=== PATIENT | male | born 1980 | race Caucasian/White ===

== ENCOUNTER 2021-05-15 12:37 | Outpatient (REF) | payer OTHER, SELFPAY ==
--- NOTE | ~2021-05-15 | XR_ITS ---
EXAMINATION: XR CHEST CLINICAL INFORMATION: Cough and left lung base pain COMPARISON: None TECHNIQUE: 2 views of the chest were obtained. FINDINGS: No significant abnormality is noted involving the heart, lungs, mediastinum, bony thorax or soft tissues. XR/XR chest 2V IMPRESSION: Unremarkable examination.
== END 2021-05-15 12:38 | disposition home or self-care (01) ==
LOC: HO.XRAY 12:37
PROVIDERS: PCP Nurse Practitioner; Visit Provider Nurse Practitioner
DX: R05 Cough (principal)
CPT/HCPCS: 71046

== ENCOUNTER 2021-11-08 14:15 | Outpatient (REF) | payer OTHER, SELFPAY ==
--- NOTE | ~2021-11-08 | US_ITS ---
EXAMINATION: US LEFT INGUINAL REGION CLINICAL INFORMATION: Pain in inguinal region. COMPARISON: None TECHNIQUE: Targeted left inguinal ultrasound with contralateral inguinal region scan for comparison. FINDINGS: There appears to be an approximately 1 cm diameter defect within the pelvic wall seen with Valsalva which has what appears to be some peristalsing bowel which extends through the fascia with Valsalva. There is also noted be a normal-appearing lymph node in the inguinal region measuring 1.5 cm x 1.2 cm x 0.5 cm in size. US/US pelvic limited IMPRESSION: Reducible small left inguinal hernia with protrusion of loop of bowel with Valsalva. The wall defect measures approximately 1 cm in diameter.
== END 2021-11-08 14:16 | disposition home or self-care (01) ==
LOC: HO.HMGCX 14:15
PROVIDERS: PCP Nurse Practitioner; Visit Provider Internal Medicine
DX: R10.32 Left lower quadrant pain (principal); K40.90 Unilateral inguinal hernia, without obstruction or gangrene, not specified as recurrent
CPT/HCPCS: 76857

== ENCOUNTER → 2021-11-21 09:57 | Outpatient (BNVA) | payer OTHER, SELFPAY | PROVIDERS: PCP Nurse Practitioner; Referring Provider Nurse Practitioner; Visit Provider Surgery ==

== ENCOUNTER 2021-12-13 10:31 | Day surgery (SDC) | payer OTHER, SELFPAY ==
[2021-12-07 15:53] VITALS: BMI 32.1
--- NOTE | 2021-12-12 10:26 | HO.ANESPROP2 ---
Documented by User: Lydia Olson NP 12/12/21 10:27 HPI - Anesthesia Eval Consult details Narrative: 41yo M for Left Hernia Repair Inguinal with Mesh PMFSH Active Problems Active Problems: All Active Problems (Updated 12/07/21 @ 15:57 by Paulina Arcos, RN) Left inguinal hernia (Acute) Past Medical History Medical History Back pain Environmental allergies GERD (gastroesophageal reflux disease) Wears contact lenses Family History Family History Maternal Grandfather Colon cancer Surgical History Surgical History H/O tooth extraction Social History Social History Are you a primary customer care assistant to a significant other at home: No Do you presently have visiting nurse or other home services: No Alcohol intake: never Patient Tobacco Use Status: Never used Tobacco Use of substances other than those prescribed or required for medical reasons: Yes Substance Use Frequency: Daily Have you been hit, kicked, punched, or otherwise hurt by someone within the past year? If so, by whom?: No Are you DNR?: No Advance Directives: No Advance Directives Information Provided: Yes Advance Directives on File: No Recently lost weight without trying: No Poor oral hygiene: No Meds Allergies Allergy/AdvReac Type Severity Reaction Status Date / Time No Known Allergies Allergy Verified 12/13/21 10:51 Home Medications Medication Instructions Recorded Confirmed Last Taken Type cetirizine 10 mg tablet 10 mg PO DAILY 11/21/21 12/07/21 12/13/21 08:30 History naproxen 500 mg tablet 500 mg PO BID 11/21/21 12/07/21 Unknown History pantoprazole 20 mg tablet,delayed 20 mg PO BID 11/21/21 12/07/21 12/13/21 08:30 History release Exam Exam Date and Time: December 12, 2021 1026 Height,Weight and Vital Signs: Height 6 ft Weight 107.501 kg Assessment and Plan Assessment Anesthesia Assessment: Chart Reviewed Documented by User: Erica William MD 12/13/21 13:08 [facility] Past Medical History Medical History Back pain Environmental allergies GERD (gastroesophageal reflux disease) Wears contact lenses Family History Family History Maternal Grandfather Colon cancer Family history of problems with anesthesia: No Surgical History Surgical History H/O tooth extraction History of Problems with Anesthesia: No Social History Social History Are you a primary customer care assistant to a significant other at home: No Do you presently have visiting nurse or other home services: No Alcohol intake: never Patient Tobacco Use Status: Never used Tobacco Use of substances other than those prescribed or required for medical reasons: Yes Substance Use Frequency: Daily Have you been hit, kicked, punched, or otherwise hurt by someone within the past year? If so, by whom?: No Are you DNR?: No Advance Directives: No Advance Directives Information Provided: Yes Advance Directives on File: No Recently lost weight without trying: No Poor oral hygiene: No Meds Allergies Allergy/AdvReac Type Severity Reaction Status Date / Time No Known Allergies Allergy Verified 12/13/21 10:51 Home Medications Medication Instructions Recorded Confirmed Last Taken Type cetirizine 10 mg tablet 10 mg PO DAILY 11/21/21 12/07/21 12/13/21 08:30 History naproxen 500 mg tablet 500 mg PO BID 11/21/21 12/07/21 Unknown History pantoprazole 20 mg tablet,delayed 20 mg PO BID 11/21/21 12/07/21 12/13/21 08:30 History release Exam Airway Mallampati Class: II (Right top tooth) TM Dist: >3cm Neck ROM: Full Heart: rrr Lungs: cta Assessment and Plan Assessment Anesthesia Assessment: Anesthesia Plan Discussed and Chart Reviewed Final Anesthetic Review Family History of Problems with Anesthesia: No History of Problems with Anesthesia: No NPO: Yes ASA Class: II Final Preanesthetic Review: No Changes in Pt Med Stat, Meds/Allgs Chart Reviewed and Consent Obtained/Reviewed Patient Risk: Intermediate Procedure Risk: Intermediate Anesthetic Plan Anesthetic Plan: GA Disposition: Standard PACU
[2021-12-13 11:01] VITALS: BP 132/91; PULSE 57; RESP 16; TEMP 36.5; O2SAT 97
[2021-12-13] MEDS: Lactated Ringers 1,000 ML 100 ML IVCONT (11:12)
--- NOTE | 2021-12-13 12:57 | MHC.SHP ---
Pre-Procedural Eval Section A Date of Service: 12/13/21 The patient is an INPATIENT: No Changes since office visit: Yes Patient answered all questions; No Cold of Flu in the past 2 weeks, No New Medical Problems and No Changes in Medication The History & Physical has been completed within 30 days and I have reviewed it.: Yes Section B Chief Complaint: Left Inguinal Hernia Allergies: Allergies Allergy/AdvReac Type Severity Reaction Status Date / Time No Known Allergies Allergy Verified 12/13/21 10:51 Plan Diagnosis/Plan: Unchanged I have reviewed the history and physical and performed a pertinent physical examination on my patient. No changes have occurred unless specified.
[2021-12-13 14:35] VITALS: BP 127/80; PULSE 74; RESP 16; TEMP 36.4; O2SAT 93
--- NOTE | 2021-12-13 14:35 | P.OP_ITS ---
Operative Note Operative Note Date of Service: 12/13/21 Narrative: Preoperative diagnosis: left inguinal hernia Postoperative diagnosis: Same Procedure: Repair of left inguinal hernia with mesh Surgeon: Sam Rider MD Instructor Business Education: Edna Putnam PA-C Anesthesia: General LMA Indications for procedure: 41 year old male with a palpable lump in the left groin suggestive of a left inguinal hernia Operative findings:. Indirect left inguinal hernia Specimen: hernia sac Estimated blood loss: 2 mls Complications: none Procedure details: Patient was brought to the OR and placed in a supine position. After administering general anesthesia the patient's abdomen was prepped with ChloraPrep and draped in a sterile fashion. A surgical time-out was called the consent confirmed. Patient received preoperative antibiotics and Venodyne boots were in place. Local anesthesia consisting of 0.5% Sensorcaine with epinephrine was infiltrated over the left inguinal ligament. Incision was then made in oblique fashion over the inguinal ligament. This carried out through subcutaneous tissue past Bryan's fashion up to the external oblique aponeurosis. Additional local was infiltrated below the external oblique aponeurosis. This was then incised with a scalpel wide with the Metzenbaum scissors. Spermatic cord was then dissected free from the surrounding inguinal canal and retracted using a Marengo drain. The floor of the inguinal canal was examined and no direct hernia was identified. Fibers of the cremasteric muscle were then and an indirect sac was identified. This was dissected down to the internal ring. The sac was then opened and the contents reduced. The sac was ligated with a 0 polysorb suture. The sac was then divided above this. This was sent to the specimen. The sac was then reduced into the abdominal cavity. Attention was then directed to the direct space which was divided between Allis clamps. The preperitoneal space was then created. This was opened further using an open Ray-Larry sponge. A large PHS mesh was then obtained. The circular underlay was placed into the preperitoneal space and deployed. The overlay was then secured to the pubic tubercle, conjoined tendon, and shelving edge of the inguinal l igament using interrupted 0 Polysorb sutures. A slit was made in the mesh and the mesh were wrapped around the spermatic cord at the internal ring. This was then secured to the shelving edge of the inguinal ligament using the 0 Polysorb suture. This was felt to be loose enough to allow the tip of an index finger to pass. Wounds were checked for hemostasis. Wounds were irrigated with saline so lution and suctioned dry. External oblique aponeurosis was then closed using a running 2 0 Polysorb suture. Bryan's fascia and dermis reapproximated using interrupted 3-0 Polysorb sutures. Skin was then closed using a running subcuticular 4-0 Polysorb suture. Steri-Strips 2 x 2 gauze and Tegaderm were then applied. The patient tolerated the procedure well. Sponge, instrument, needle counts reported as correct. Patient was transferred to PACU in stable condition.
[2021-12-13 14:40] VITALS: BP 129/82; PULSE 62; RESP 14; O2SAT 94
[2021-12-13 14:45] VITALS: BP 125/77; PULSE 61; RESP 16; O2SAT 94
[2021-12-13 14:50] VITALS: BP 121/74; PULSE 61; RESP 16; O2SAT 95
[2021-12-13 14:55] VITALS: BP 120/73; PULSE 61; RESP 16; TEMP 37; O2SAT 94
== END 2021-12-13 15:41 | disposition home or self-care (01) ==
PROVIDERS: PCP Nurse Practitioner; Visit Provider Surgery
PROC: (CPT 49505; principal; 2021-12-13 12:20)
DX: K40.90 Unilateral inguinal hernia, without obstruction or gangrene, not specified as recurrent (principal); K21.9 Gastro-esophageal reflux disease without esophagitis; Z79.899 Other long term (current) drug therapy
CPT/HCPCS: 49505; 88302; C1781; J0690; J1100; J1885; J2250; J2405; J3010

== ENCOUNTER → 2021-12-21 10:50 | Outpatient (BNVA) | payer OTHER, SELFPAY | PROVIDERS: PCP Nurse Practitioner; Referring Provider Nurse Practitioner; Visit Provider Surgery ==

== ENCOUNTER → 2022-01-09 09:59 | Outpatient (BNVA) | payer OTHER, SELFPAY | PROVIDERS: PCP Nurse Practitioner; Referring Provider Nurse Practitioner; Visit Provider Surgery | DX: Z13.89 Encounter for screening for other disorder (principal) ==

== ENCOUNTER 2022-06-14 16:48 | Emergency (ER) | payer OTHER, SELFPAY ==
--- NOTE | ~2022-06-14 | XR_ITS ---
EXAMINATION: XR KNEE, LEFT CLINICAL INFORMATION: Pain COMPARISON: None TECHNIQUE: Four views of the left knee. FINDINGS: Bones and soft tissues are normal. Small joint effusion. Alignment is anatomic. Joint spaces are well maintained. Chondrocalcinosis in the lateral joint. XR/XR knee LT 3V IMPRESSION: Small joint effusion. Chondrocalcinosis.
[2022-06-14 17:05] VITALS: BP 130/78; PULSE 70; RESP 17; TEMP 36.6; O2SAT 98; BMI 30.4
--- NOTE | 2022-06-14 18:37 | ED.GENADULT ---
HPI - General Adult General Chief complaint: Extremity Injury, Lower Stated complaint: left knee pain Time Seen by Provider: 06/14/22 18:15 Source: patient Mode of arrival: ambulatory Limitations: no limitations History of Present Illness HPI narrative: 41 yold male presents to the ED for left knee pain since yesterday after twisting knee. Patient states he was standing and Renetta his left lower extremity to begin climbing a rock yesterday and heard a popping crunch in his left knee. Patient states since then having pain. Patient denies falling to the ground of blunt trauma to knee. Patient states no fever, chills, redness, or swelling. Related Data Home Medications Medication Instructions Recorded Confirmed cetirizine 10 mg tablet 10 mg PO DAILY 11/21/21 12/07/21 naproxen 500 mg tablet 500 mg PO BID 11/21/21 12/07/21 pantoprazole 20 mg tablet,delayed 20 mg PO BID 11/21/21 12/07/21 release Previous Rx's Medication Instructions Recorded naproxen 500 mg tablet 500 mg PO BID PRN pain 10 days #20 06/14/22 tabs prednisone 20 mg tablet 60 mg PO DAILY 5 days #15 tabs 06/14/22 Allergies Allergy/AdvReac Type Severity Reaction Status Date / Time No Known Allergies Allergy Verified 01/09/22 10:06 Review of Systems Review of Systems: Left knee pain PMFSH Past Medical History Medical History (Updated 06/15/22 @ 00:03 by Mike Davila) Back pain Environmental allergies GERD (gastroesophageal reflux disease) Wears contact lenses Surgical History H/O tooth extraction S/P left inguinal hernia repair (12/13/21) Family History Family History Maternal Grandfather Colon cancer Social History Social History Are you a primary animal care service worker to a significant other at home: No Do you presently have visiting nurse or other home services: No Alcohol intake: never Patient Tobacco Use Status: Never used Tobacco Advance Directives: No Advance Directives Information Provided: No Physical Exam ED Vital Signs: Vital Signs - 24 hr 06/14/22 17:05 Temperature 98 F Pulse Rate 70 Respiratory Rate 17 Blood Pressure 130/78 Pulse Oximetry 98 Oxygen Delivery Method Room Air BMI result Body Mass Index 30.4 Const General: cooperative, healthy appearing, comfortable, no acute distress, well developed, alert, awake and Physically active Orientation/consciousness: oriented to time and patient oriented x3 [facility] Head: Yes normal to inspection, Yes No palpable skull fracture present, Yes normocephalic, Yes atraumatic and No abrasion Eyes General: appearance normal, both eyes and all related structures Neck Neck: Yes normal visual inspection, Yes full ROM, Yes no lymphadenopathy, Yes no meningeal signs, Yes trachea midline, Yes supple, No anterior neck swelling and No tender Chest Chest palpation & inspection: normal inspection of the chest and normal palpation of entire chest wall Resp Effort & Inspection: normal respiratory effort and able to speak in complete sentences Auscultation: clear to auscultation bilaterally Cardio Jugular venous distension: no JVD Heart sounds: S1 normal heart sound present and S2 normal heart sound present GI Inspection: Yes normal to inspection and No abdominal wall ecchymosis Palpation (GI): Soft to palpation, not firm, nontender, no guarding and not rigid General: No CVA tenderness and Yes no CVA tenderness Back/Spine/Pelvis Back: no CVA tenderness, No CVA tenderness and No back tenderness Skin General skin exam: no rashes or lesions noted and elasticity normal Neuro General: oriented to time, patient oriented x3, gait normal, tone normal and no meningeal signs Cranial nerves: Yes CN's II-XII intact bilaterally Extrem General: Yes normal to inspection and Yes full ROM Knee images: 1. Tenderness on palpation. Painless range of motion. Negative for erythema, swelling, stiffness, or any elasticity. Popliteal pulse is intact. Rest of lower extremity normal. Motor/neuro/vascular exam intact Psych Appearance: grossly normal, well kempt and not disheveled Course Course Course Narrative: Sent for left knee x-ray Reevaluation(s) Reevaluation #1: Knee x-ray shows small effusion but no fracture. Most likely patient has meniscus versus ligament tear. Patient already has his own Alexy bandage elastic brace. Patient discharged with steroids and NSAIDs and told to follow-up with orthopedic. Not suspecting septic joint or gout. Time: 18:48 Medical Decision Making [facility] Narrative Medical decision making narrative: left knee sprain Discharge Plan Discharge Clinical Impression: Knee sprain Patient Disposition: Home, Self-Care Instructions: Knee Sprain (ED) Additional Instructions: Knee x-ray came back negative, but does show small joint effusion which most likely indicate ligament versus meniscus injury. You need a MRI. Continue wearing the knee brace. He will be discharged with NSAIDs and steroids. Return to the ED for any redness, stiffness, blood clots coloration, leg swelling, calf pain, chest pain, shortness of breath, fever, chills, or any other concerning symptoms. keep using your brace. Prescriptions: New naproxen 500 mg tablet 500 mg PO BID PRN (Reason: pain) 10 Days Qty: 20 0RF prednisone 20 mg tablet 60 mg PO DAILY 5 Days Qty: 15 0RF No Action naproxen 500 mg tablet 500 mg PO BID pantoprazole 20 mg tablet,delayed release (DR/EC) 20 mg PO BID cetirizine 10 mg tablet 10 mg PO DAILY Referrals: Abdon Gray MD [Physician] - (Left knee small joint effusion. Possible meniscus versus ligament tear) Stand Alone Forms: Work/School Release Interventions: ED Discharge Assessment Last Done: 06/14/22 19:12 Discharge Date/Time: 06/14/22 19:12 Print Language: Maori
== END 2022-06-14 19:12 | disposition home or self-care (01) ==
PROVIDERS: Emergency Provider Emergency Medicine Emergency Medical Services; PCP Nurse Practitioner
DX: S83.92XA Sprain of unspecified site of left knee, initial encounter (principal); X50.1XXA Overexertion from prolonged static or awkward postures, initial encounter; M25.462 Effusion, left knee; Y93.31 Activity, mountain climbing, rock climbing and wall climbing; Y92.9 Unspecified place or not applicable; Y99.9 Unspecified external cause status
CPT/HCPCS: 73562; 99282; 99283; 99284

== ENCOUNTER 2022-06-25 08:37 | Outpatient (REF) | payer OTHER, SELFPAY ==
--- NOTE | ~2022-06-25 | XR_ITS ---
EXAMINATION: XR KNEE AP STANDING CLINICAL INFORMATION: Pain left knee. COMPARISON: Left knee 06/14/2022. TECHNIQUE: AP bilateral standing view of the knees was obtained. [place] 1 view left knee. FINDINGS: AP BILATERAL KNEE: There is a loose bone fragment or chondrocalcinosis lateral compartment left knee. The medial and lateral compartment joint space of both knees is preserved. No bony erosive changes seen. No soft tissue swelling. LEFT KNEE: A single sunrise view of the left knee reveals no osteochondral defect or bony erosive changes. The soft tissues are normal. XR/XR knee LT 1V IMPRESSION: Small loose body or chondrocalcinosis lateral compartment of the left knee. Differential diagnosis to consider is synovial chondromatosis. No osteochondral defect seen.
--- NOTE | ~2022-06-25 | XR_ITS ---
EXAMINATION: XR KNEE AP STANDING CLINICAL INFORMATION: Pain left knee. COMPARISON: Left knee 06/14/2022. TECHNIQUE: AP bilateral standing view of the knees was obtained. [place] 1 view left knee. FINDINGS: AP BILATERAL KNEE: There is a loose bone fragment or chondrocalcinosis lateral compartment left knee. The medial and lateral compartment joint space of both knees is preserved. No bony erosive changes seen. No soft tissue swelling. LEFT KNEE: A single sunrise view of the left knee reveals no osteochondral defect or bony erosive changes. The soft tissues are normal. XR/XR knee standing BI IMPRESSION: Small loose body or chondrocalcinosis lateral compartment of the left knee. Differential diagnosis to consider is synovial chondromatosis. No osteochondral defect seen.
== END 2022-06-25 08:38 | disposition home or self-care (01) ==
LOC: HO.HOSX 08:37
PROVIDERS: Visit Provider Physician Assistant
DX: M25.562 Pain in left knee (principal); M25.561 Pain in right knee
CPT/HCPCS: 73560; 73565

== ENCOUNTER 2022-07-05 09:48 | Outpatient (REF) | payer OTHER, SELFPAY ==
--- NOTE | ~2022-07-05 | MR_ITS ---
EXAMINATION: MR KNEE WITHOUT CONTRAST, LEFT CLINICAL INFORMATION: Left knee injury 2-3 weeks ago. Pain. COMPARISON: Left knee radiographs dated 06/25/2022. TECHNIQUE: MRI of the knee without contrast was performed using routine sequences on a high-field scanner. FINDINGS: MENISCI: MEDIAL MENISCUS: Intact LATERAL MENISCUS: Intact LIGAMENTS: CRUCIATE: Intact COLLATERAL: Mild edema adjacent to the medial collateral ligament consistent with a grade 1 sprain/partial tear. Intact fibular collateral ligament. EXTENSOR MECHANISM: Intact quadriceps and patellar tendons. ARTICULAR CARTILAGE/BONE: PATELLOFEMORAL COMPARTMENT: Full-thickness articular cartilage loss at the inferior aspect of the patellar median ridge measuring 1.3 x 1.1 cm (CC by ML). Marrow edema within the inferomedial aspect of the patella without an associated fracture line, likely indicating an osseous contusion. MEDIAL COMPARTMENT: Intact articular cartilage. LATERAL COMPARTMENT: Intact articular cartilage. JOINT FLUID AND BURSAE: Small joint effusion. Partially ossified loose body at the anterior aspect of the lateral joint space measuring 2.1 x 2.5 x 0.6 cm (AP x ML x CC). Additional loose body within a joint recess posterior to the medial compartment measuring up to 0.4 cm (sagittal image ). MR/MR knee LT wo con IMPRESSION: 1. Acute grade 1 sprain/partial tear of the medial collateral ligament. 2. Full-thickness articular cartilage defect at the inferior aspect of the patellar median ridge measuring up to 1.3 cm. Partially ossified loose body anterior to the lateral compartment measuring up to 2.5 cm. Additional posterior loose body measuring up to 0.4 cm. Small joint effusion. 3. Focal marrow edema within the inferomedial aspect of the patella consistent with an osseous contusion. No associated fracture line.
== END 2022-07-05 09:49 | disposition home or self-care (01) ==
LOC: HO.MRI 09:48
PROVIDERS: Visit Provider Physician Assistant
DX: S83.8X2A Sprain of other specified parts of left knee, initial encounter (principal)
CPT/HCPCS: 73721

== ENCOUNTER → 2022-10-18 09:03 | Outpatient (BNVA) | payer OTHER, SELFPAY | PROVIDERS: PCP Nurse Practitioner; Visit Provider Physician Assistant | DX: Z13.89 Encounter for screening for other disorder (principal) ==

== ENCOUNTER 2022-10-24 08:53 | Day surgery (SDC) | payer OTHER, SELFPAY ==
--- NOTE | 2022-10-23 08:54 | HO.ANESPROP2 ---
Documented by User: Lydia Olson NP 10/23/22 08:55 HPI - Anesthesia Eval Consult details Narrative: 42yo M for Left Knee Arthroscopy with removal of loose body s/p inguinal hernia repair 12/2021 with GA-LMA 5 PMFSH Active Problems Active Problems: All Active Problems (Updated 10/18/22 @ 09:35 by Judith Johnson) Left inguinal hernia (Acute) Injury of meniscus of knee (Acute) MCL sprain of left knee (Acute) Chondral defect of left patella (Acute) Loose body of left knee (Acute) S/P left inguinal hernia repair (Acute) Past Medical History Medical History Back pain Environmental allergies GERD (gastroesophageal reflux disease) Wears contact lenses Family History Family History Maternal Grandfather Colon cancer Family history of problems with anesthesia: No Surgical History Surgical History H/O tooth extraction S/P left inguinal hernia repair History of Problems with Anesthesia: No Social History Social History Are you a primary intensive care medicine specialist to a significant other at home: No Do you presently have visiting nurse or other home services: No Alcohol intake: never Patient Tobacco Use Status: Never used Tobacco Use of substances other than those prescribed or required for medical reasons: Yes Substance Use Frequency: Daily Are you DNR?: No Advance Directives: No Advance Directives Information Provided: Yes Meds Allergies Allergy/AdvReac Type Severity Reaction Status Date / Time No Known Allergies Allergy Verified 10/24/22 09:21 Home Medications Medication Instructions Recorded Confirmed Last Taken Type No Known Home Meds 10/18/22 10/19/22 Unknown History Exam Exam Date and Time: October 23, 2022 0854 Assessment and Plan Assessment Anesthesia Assessment: Chart Reviewed Final Anesthetic Review Family History of Problems with Anesthesia: No History of Problems with Anesthesia: No Documented by User: Coretta Mcrae MD 10/24/22 10:05 PMFSH Past Medical History Medical History Back pain Environmental allergies GERD (gastroesophageal reflux disease) Wears contact lenses Family History Family History Maternal Grandfather Colon cancer Surgical History Surgical History H/O tooth extraction S/P left inguinal hernia repair Social History Social History Are you a primary intensive care medicine specialist to a significant other at home: No Do you presently have visiting nurse or other home services: No Alcohol intake: never Patient Tobacco Use Status: Never used Tobacco Use of substances other than those prescribed or required for medical reasons: Yes Substance Use Frequency: Daily Are you DNR?: No Advance Directives: No Advance Directives Information Provided: Yes Meds Allergies Allergy/AdvReac Type Severity Reaction Status Date / Time No Known Allergies Allergy Verified 10/24/22 09:21 Home Medications Medication Instructions Recorded Confirmed Last Taken Type No Known Home Meds 10/18/22 10/19/22 Unknown History Exam Airway Mallampati Class: II TM Dist: >3cm Neck ROM: Full Heart: rrr Lungs: cta Assessment and Plan Assessment Anesthesia Assessment: Anesthesia Plan Discussed and Smoking Cess. Discussed (Mary smoker ) Final Anesthetic Review NPO: Yes ASA Class: II Final Preanesthetic Review: No Changes in Pt Med Stat, Meds/Allgs Chart Reviewed and Consent Obtained/Reviewed Patient Risk: Low Procedure Risk: Low Anesthetic Plan Anesthetic Plan: GA and Agree w/ Assess. and Plan Disposition: Standard PACU
[2022-10-24] VITALS (9 sets, daily range): BP systolic 118–137; BP diastolic 72–79; PULSE 58–78; RESP 15–17; TEMP 36.3–36.6; O2SAT 97–99; BMI 30.5
[2022-10-24] MEDS: Lactated Ringers 1,000 ML 100 ML IVCONT (09:20)
--- NOTE | 2022-10-24 10:18 | MHC.SHP ---
Pre-Procedural Eval Section A Date of Service: 10/24/22 The patient is an INPATIENT: No Changes since office visit: No Cold of Flu in the past 2 weeks, No New Medical Problems, No Changes in Medication and No Patient answered all questions The History & Physical has been completed within 30 days and I have reviewed it.: Yes Section B Chief Complaint: Loose body in knee, left knee,Other internal deran Allergies: Allergies Allergy/AdvReac Type Severity Reaction Status Date / Time No Known Allergies Allergy Verified 10/24/22 09:21 Plan I have reviewed the history and physical and performed a pertinent physical examination on my patient. No changes have occurred unless specified. Time Spent With Patient Time: Total time managing care of this patient today ____ minutes.
--- NOTE | 2022-10-24 11:10 | P.BOP_ITS ---
Brief Operative Note Date of Service: 10/24/22 Pre-op diagnosis: Left knee loose body Post-op diagnosis: other (Left knee patella osteochondral injury with loose osteochondral body) Procedure: Left knee arthroscopic removal of loose body and patellar chondroplasty Implants: none Surgeon: Abdon Gray MD Anesthesia: GETA and local Was an Business Development Agent used for this Procedure?: No Estimated blood loss (mL): 0 IV fluids (mL): 650 Pathology: other Condition: stable Disposition: PACU
[2022-10-24] MEDS: Acetaminophen 325 MG TABLET 650 MG PO (12:14)
--- NOTE | 2022-10-24 13:13 | W.PM.OPN ---
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 A time-out was called to identify proper site proper procedure proper surgeon and IV antibiotics per weight were administered. I began by exsanguinating the limb and insufflating tourniquet to 300 mm Hg. Then made a standard anterolateral stab incision. knee was insufflated with water and 30 degree arthroscope was placed. There was grade an zapproximately 1 cm x 1 cm full thickness elsion in the superomedial patella. This had a central area of exposed subchondral bone with surrounding areas of G3 changes. The suprapatellar pouch was plane and the medial gutter was clean. The lateral cutter containted a large osteochondral fragment. I descended into the medial compartment where I made my medial portal under direct visualization. There was a normal medail and lateral compartment. The notch and ACL were normal. I then placed my camera in the medial portal and expanded the lateral incision. I placed a full grasper and removed the loose body in its entirety. IT measure approximately 1.5 cm. I then retruned to the patella and used a shaver and wand to debride the loose catrlage. Once I was satisfied with this my final pictures were obtained and all instrumentation was removed. I closed the portals with nylon. 25 mL of 2% Marcaine with epinephrine was injected into the joint and the surrounding soft tissues. Patient was then placed in sterile dressing extubated brought recovery room stable condition. There were no known complications.
== END 2022-10-24 13:10 | disposition home or self-care (01) ==
LOC: HO.SSS 08:53
PROVIDERS: Visit Provider Orthopaedic Surgery
PROC: (CPT 29870; principal; 2022-10-24 11:20)
DX: M23.42 Loose body in knee, left knee (principal); M23.8X2 Other internal derangements of left knee; K21.9 Gastro-esophageal reflux disease without esophagitis
CPT/HCPCS: 29874; 88304; 88311; J0171; J0690; J1100; J1885; J2370; J2405; J2795; J3010

== ENCOUNTER → 2022-10-29 08:54 | Outpatient (BNVA) | payer OTHER, SELFPAY | PROVIDERS: Visit Provider Physician Assistant | DX: M23.42 Loose body in knee, left knee (principal) ==

== ENCOUNTER 2023-01-09 09:00 | Outpatient (RCR) | payer OTHER, SELFPAY ==
--- NOTE | 2022-11-06 14:06 | MHC.PT.EP ---
[facility] [place] Office [place] Office [place] Office [address] Willis Baum [address] [phone] F: [phone] F: [phone] F: [phone] F: [phone] Physical Therapy Plan of Care Date of Evaluation: Date of Surgery: 10/24/22 Diagnosis: L knee internal derangement (s/p Left knee arthroscopic removal of loose body and patellar chondroplasty on 10/24/22) Assessment: Patient is a 42 y.o. male who is referred to PT by ROSARIO Teran, with Dx of L knee internal derangement (s/p Left knee arthroscopic removal of loose body and patellar chondroplasty on 10/24/22). Patient impairments include swelling, pain, limited ROM, and weakness. 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 Patient will benefit from skilled PT to address aforementioned impairments and functional limitations to meet established goals. Frequency and Duration: The patient will be seen 2x/week for 4 weeks Short Term Goals: 2 weeks Patient demonstrates consistency and independence with HEP to self manage symptoms. Patient presents with reduced swelling in L knee with joint line circumferential measurement 37cm. Client Reporting Associate Goals: 4 weeks Patient presents with increased L knee flexion 120 degrees to be able to perform squats to low cabinets at work. Patient presents with increased L knee extension strength 4/5 to be able to perform reciprocal stairs. Treatment Plan: Modalities to reduce pain, spasms and effusion. Manual therapy to restore motion and function. Therapeutic exercise to improve strength and flexibility. Neuromuscular re-education for posture and balance. Therapeutic activities to return to functional activities of daily living. Electronically signed by: Donna Goss, PT, DPT Please sign and return to therapist. Thank you for your referral.
--- NOTE | 2023-02-20 10:55 | MHC.PT.DC ---
[facility] [place] Office [place] Office [place] Office [address] Willis Baum [address] [facility] [phone] F: [phone] F: [phone] F: [phone] F: [phone] Physical Therapy Discharge Report Diagnosis: L knee internal derangement (s/p Left knee arthroscopic removal of loose body and patellar chondroplasty on 10/24/22) Date of Surgery: 10/24/22 Date of Evaluation: 11/06/22 Date of Discharge: 01/09/23 Treatments to Date: 13 Cancellations to Date: 1 No Shows to Date: Discharge Status: Discharge Summary: Patient did well with PT reduced pain and swelling, improved ROM and strength, but he ceased attending PT on his own accord and is discharged from PT at this time. Electronically signed by: Donna Goss, PT, DPT Please sign and return to therapist. Thank you for your referral.
== END 2023-02-20 10:55 | disposition home or self-care (01) ==
LOC: HO.PT 09:00
PROVIDERS: PCP Nurse Practitioner; Visit Provider Physician Assistant
DX: M23.8X2 Other internal derangements of left knee (principal); M23.42 Loose body in knee, left knee
CPT/HCPCS: 97110; 97112; 97140; 97161

== ENCOUNTER 2023-11-05 14:23 | Emergency (ER) | payer OTHER, SELFPAY ==
--- NOTE | ~2023-11-05 | XR_ITS ---
EXAMINATION: XR RIBS, RIGHT CLINICAL INFORMATION: Right lower rib pain COMPARISON: None available. TECHNIQUE: PA chest and 6 view right rib series FINDINGS: Lungs are clear. No consolidation, pneumothorax, or pleural effusion. The cardiomediastinal silhouette and pulmonary vasculature are normal. BB is placed in the lower right lateral rib cage. No fracture identified. XR/XR ribs RT min 3V w CXR1V IMPRESSION: No acute cardiopulmonary disease or acute bony pathology.
--- NOTE | 2023-11-05 14:39 | ED.ABDPAIN ---
HPI - Abdominal Pain General Chief Complaint: General Medical Stated Complaint: R Side Back Pain No Injury Etc Time Seen by Provider: 11/05/23 16:05 Source: patient Mode of arrival: ambulatory Limitations: no limitations History of Present Illness HPI narrative: Patient is a 43-year-old male presenting to the emergency department with complaint of right mid back pain worsening over the past week. He denies any fall or other trauma. 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 States that he smokes marijuana and when coughing related to this the pain increases, denies any cough at other times. Denies hemoptysis. Denies any rashes or bruising to the area. Denies fevers. Denies any hematuria, dysuria frequency or other urinary symptoms. States pain is worse with movement and palpation. MD elicited complaint: other Onset (ago): week(s) Pain Consistency: colicky Quality: aching Migration to: no migration Exacerbating factors: movement Relieving factors: rest Associated symptoms: denies other symptoms Related Data Previous Rx's Medication Instructions Recorded cyclobenzaprine 10 mg tablet 10 mg PO TID PRN muscle spasm #10 11/05/23 tabs lidocaine 5 % topical patch 1 patch topical DAILY #15 ea 11/05/23 Allergies Allergy/AdvReac Type Severity Reaction Status Date / Time No Known Allergies Allergy Verified 11/05/23 14:39 Review of Systems Review of Systems As per HPI. Yes all other systems are reviewed and are negative Constitutional: Reports as per HPI [facility] Past Medical History Medical History (Updated 11/05/23 @ 17:21 by Lori Bang NP) Environmental allergies GERD (gastroesophageal reflux disease) Back pain Wears contact lenses Surgical History S/P left inguinal hernia repair H/O tooth extraction Family History Family History Maternal Grandfather Colon cancer Social History Social History Are you a primary client care representative to a significant other at home: No Do you presently have visiting nurse or other home services: No Alcohol intake: never Patient Tobacco Use Status: Never used Tobacco Advance Directives: No Advance Directives Information Provided: No Physical Exam ED Vital Signs: Vital Signs - 24 hr 11/05/23 14:41 Temperature 98 F Pulse Rate 77 Respiratory Rate 18 Blood Pressure 135/88 Pulse Oximetry 97 Oxygen Delivery Method Room Air BMI result Body Mass Index 31.4 Vital signs have been reviewed and appear to be correct. Blood pressure normal. Heart rate normal. Respiratory rate normal. Temperature normal. Oxygen saturation normal. Const General: cooperative, healthy appearing and no acute distress Orientation/consciousness: oriented to person, oriented to place, oriented to time and patient oriented x3 Limitations: no limitations HENMT Head: Yes normocephalic and Yes atraumatic Ears: external ears normal General nose exam: Normal external nose present Face and sinus: Yes face symmetric Mouth: oropharynx normal and moist mucous membranes Throat: Yes uvula midline Eyes Pupils: Equal, round and reactive pupils present Neck Neck: Yes normal visual inspection and Yes supple Resp Effort & Inspection: normal respiratory effort and able to speak in complete sentences Auscultation: clear to auscultation bilaterally Cardio Rate: regular rate Rhythm: regular rhythm Heart sounds: S1 normal heart sound present and S2 normal heart sound present GI Palpation (GI): Soft to palpation and nontender Auscultation: normoactive bowel sounds General: Yes no CVA tenderness Back/Spine/Pelvis Back: no CVA tenderness Thoracic/Lumbar Spine: thoracic and lumbar spine normal to inspection, thoraco-lumbar ROM normal, paraspinal muscle tenderness on the right in the mid thoracic, No thoracic spinal tenderness and No lumbar spinal tenderness Skin General skin exam: elasticity normal and turgor normal Neuro General: oriented to person, oriented to place, oriented to time, patient oriented x3, moves all extremities, no focal motor deficits and CN's II-XI intact bilaterally Cranial nerves: Yes Equal, round and reactive pupils present Cognition (Neuro): normal cognition Extrem General: Yes full ROM, Yes no pedal edema and Yes no calf tenderness Psych Mental Status: mental status grossly normal Affect: normal affect Thought process: Normal thought process present Course Course Course Narrative: RME: 43 year-old M w/ PMHx hernia presenting to the ED c/o R flank pain/posterior lower rib pain x few days, worse w/coughing, movement. denies hematuria, dysuria, SOB/CP, abdominal pain R posterior lower rib ttp. No rash UA, XR ordered Full HPI, ROS and PE to be performed by primary ED provider. Medical Decision Making Medical Decision Making [facility] Narrative: Patient is a 43-year-old male presenting to the emergency department with complaint of right mid back pain worsening over the past week. On exam patient is awake, A+Ox3, VS WNL, afebrile, normal neurological exam without focal deficits, physical exam findings as above. Given reported symptoms and physical exam findings, initial differential includes rib fracture, UTI/pyelonephritis, renal calculi, herpes zoster. No evidence of infection on urinalysis. X-ray notable for no evidence of rib fracture or pneumonia. My interpretation is in agreement with the radiologist's interpretation. Physical exam findings most consistent with muscle strain. Will treat with cyclobenzaprine and lidocaine patches, advised patient to alternate Tylenol and ibuprofen. Discussed with patient that he should follow up with PCP or return if he develops a vesicular rash in the area of discomfort. Return precautions discussed at bedside. Patient verbalized understanding of and agreement with plan. Differential Diagnosis Differential Diagnoses: The differential diagnosis associated with the presentation includes As per [facility]. Lab Data [facility] Lab Attestation statement: I reviewed the patient's lab results. As per [facility]. Labs: Lab Results 11/05/23 Range/Units 16:29 Urine Color Yellow Urine Appearance Clear Urine pH 5.5 (5.0-9.0) Ur Specific [place] 1.010 (1.005-1.025) Urine Protein Negative (Neg-Trace) mg/dL Urine Glucose (UA) Negative (Negative) mg/dL Urine Ketones Negative (Negative) mg/dL Urine Blood Negative (Negative) Urine Nitrite Negative (Negative) Ur Leukocyte Esterase Negative (Negative) Independent Interpretation I performed an independent interpretation of an: Plain X-Ray Interpretation: No evidence of rib fracture pneumonia Radiology Impression Discussion of test interpretation with radiology: I have reviewed the radiologist's reading. Radiologist Impression: XR/XR ribs RT min 3V w CXR1V IMPRESSION: No acute cardiopulmonary disease or acute bony pathology. External Record Review External record reviewed: Inpatient record, Office record and Outpatient record Prescription Management I considered prescription management with: Pain Medication and Other Discharge Plan Discharge Clinical Impression: Strain of mid-back Patient Disposition: Home, Self-Care Instructions: Muscle Strain (DC), Thoracic Back Strain (ED) Additional Instructions: You were evaluated in the emergency department today for back pain. Your evaluation did not show signs of medical conditions requiring emergent intervention at this time. We recommended that you use ibuprofen or Tylenol per package directions every 6 hours as needed for pain. If necessary, you can alternate these medications so that you take one medication every 3 hours. For instance, at noon take ibuprofen, then at 3:00 p.m. take Tylenol, then at 6:00 p.m. take ibuprofen. You have been prescribed a muscle relaxer which you may take every 8 hours as needed for spasms. You have been prescribed 5% topical lidocaine patches which you can wear for up to 12 hours in a 24 hour period. Do not apply heat directly over the patches. Please schedule an appointment for follow-up with your primary care physician this week for further evaluation of your symptoms. Return to the emergency department if you experience worsening back pain, difficulty walking, fevers, numbness, tingling, incontinence, groin numbness or tingling, or any other concerning symptoms. Prescriptions: New cyclobenzaprine 10 mg tablet 10 mg PO TID PRN (Reason: muscle spasm) Qty: 10 0RF lidocaine 5 % adhesive patch,medicated 1 patch topical DAILY Qty: 15 0RF Rx Instructions: leave on most painful area for up to 12 hrs
[2023-11-05 14:41] VITALS: BP 135/88; PULSE 77; RESP 18; TEMP 36.6; O2SAT 97; BMI 31.4
[2023-11-05 16:44] LABS: Appearance Urine Clear; Color Urine Yellow; Glucose Urine UA Negative (Negative); Leukocyte Esterase Urine Negative (Negative); Nitrite Urine Negative (Negative); PH 5.5 (5.0-9.0); Urine Blood Negative (Negative); Urine Ketones Negative (Negative); Urine Protein Negative (Neg-Trace)
== END 2023-11-05 17:34 | disposition home or self-care (01) ==
PROVIDERS: Physician Assistant; Emergency Provider Internal Medicine
DX: S29.012A Strain of muscle and tendon of back wall of thorax, initial encounter (principal); X50.9XXA Other and unspecified overexertion or strenuous movements or postures, initial encounter; R05.9 Cough, unspecified; Y93.9 Activity, unspecified; Y92.019 Unspecified place in single-family (private) house as the place of occurrence of the external cause; Y99.9 Unspecified external cause status
CPT/HCPCS: 71101; 81003; 99282; 99283

== ENCOUNTER 2024-09-21 18:50 | Emergency (ER) | payer OTHER, SELFPAY ==
--- NOTE | ~2024-09-21 | XR_ITS ---
EXAMINATION: XR CHEST CLINICAL INFORMATION: chest pain COMPARISON: Chest x-ray on 821 TECHNIQUE: Frontal view of the chest was obtained. FINDINGS: No significant abnormality is noted involving the heart, lungs, mediastinum, bony thorax or soft tissues. XR/XR chest 1V IMPRESSION: Unremarkable examination. Electronically signed by: Herminia Alvarado MD 09/21/2024 09:09 PM [facility] [place]
--- NOTE | 2024-09-21 18:54 | ECG_ITS ---
Test Reason : CHEST PAIN Blood Pressure : / mmHG Vent. Rate : 094 BPM Atrial Rate : 094 BPM P-R Int : 198 ms QRS Dur : 090 ms QT Int : 328 ms P-R-T Axes : 061 055 054 degrees QTc Int : 410 ms Normal sinus rhythm Normal ECG No previous ECGs available Referred By: Generic ED Physician Electronically Signed By:KAREN RIOS MD
[2024-09-21 19:27] VITALS: BP 140/89; PULSE 80; RESP 20; TEMP 37.1; O2SAT 98; BMI 27.9
--- NOTE | 2024-09-21 19:35 | ED_ITS ---
HPI - Chest Pain General Chief Complaint: Chest Pain Stated Complaint: chest discomfort Time Seen by Provider: 09/21/24 21:37 Source: patient Mode of arrival: ambulatory Limitations: no limitations History of Present Illness ED Provider: Porsche Corbett NP HPI narrative: Patient is a 44 old male presents emergency department for evaluation. 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 Over the past month he has been experiencing intermittent mid/left anterior chest pain that typically lasts about 5-10 minutes described as a discomfort before self-resolving. He can not attribute it to exertion, stress, or particular movement. Occurs at random times. Sometimes at rest other times while moving about. Not required use of any analgesics. Considering the symptoms have continued and he does not have a current primary care doctor he thought he should have evaluation finally. Reports that it has not progressed or worsened in any way. Admits that he does occasionally do heavy lifting in his work as well as personal life but does not feel like this is muscular pain. Denies associated diaphoresis, nausea, vomiting, dizziness, lightheadedness, shortness of breath, difficulty breathing, numbness or tingling of the extremities, lower extremity pain or swelling. Denies a history of similar pain in the past. Denies known history of hyperlipidemia or hypertension. Denies family history of NH at a young age, family history of sudden cardiac at a young age. Related Data Previous Rx's ?Medication ?Instructions ?Recorded cyclobenzaprine 10 mg tablet 10 mg PO TID PRN muscle spasm #10 11/05/23 tabs lidocaine 5 % topical patch 1 patch topical DAILY #15 ea 11/05/23 Allergies Allergy/AdvReac Type Severity Reaction Status Date / Time No Known Allergies Allergy Verified 09/21/24 19:30 Review of Systems 2 Review of Systems: Yes all other systems are reviewed and are negative PMFSH Past Medical History Attestation statement: The following information was validated with the patient. Source: old records reviewed Medical History (Updated 09/22/24 @ 00:01 by Mike Davila) Environmental allergies GERD (gastroesophageal reflux disease) Back pain Wears contact lenses Surgical History S/P left inguinal hernia repair H/O tooth extraction Family History Family History Maternal Grandfather Colon cancer Social History Social History Are you a primary health care / medical job titles to a significant other at home: No Do you presently have visiting nurse or other home services: No Alcohol intake: never Patient Tobacco Use Status: Never used Tobacco Advance Directives: No Advance Directives Information Provided: No Do you have a plan to hurt others: No Plan Physical Exam 2 Vital Signs: Vital Signs: Last Vital Signs Temp 98.2 F 09/21/24 22:58 Pulse 64 09/21/24 22:58 Resp 18 09/21/24 22:58 BP 136/88 09/21/24 22:58 Pulse Ox 97 09/21/24 22:58 O2 Del Method Room Air 09/21/24 22:58 BMI result Body Mass Index 27.9 Appearance: Alert.?Oriented to person, place and time. No acute distress.?Normal affect. Eyes: Pupils equal, round and reactive to light.? ENT: Pharynx normal.?? Neck: Normal inspection.? Neck supple.??No JVD. CVS: Heart sounds normal. Normal heart rate and rhythm.? Pulses normal.?? Respiratory: No respiratory distress.? Lung sounds clear to auscultation bilaterally?? Abdomen: Soft and non-tender. Normoactive bowel sounds. No pulsatile mass.?? Skin: Skin warm and dry.? Normal skin color.? ?? Extremities: No lower extremity edema.? No calf ttp? Neuro: Moves all extremities spontaneously. Sensation intact bilaterally. CN II- XII intact. No focal neuro deficits. Ambulates with normal steady gait. Course Course Course Narrative: RME: 44 yold male presents to the ED for chest pain for several weeks. 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 Patient denies any URI symptoms. EKG labs ordered. Medical Decision Making Medical Decision Making [facility] Narrative: Patient is a 44 old male with past medical history of GERD who presents to the emergency department for evaluation with complaint of chest pain. No evidence of volume overload or shock on exam. EKG without signs of acute ischemia. EKG without evidence of STEMI. Low suspicion for acute PE (Wells low risk - would defer CT angio imaging of the chest), pneumothorax, thoracic aortic dissection, cardiac effusion / tamponade. No recent trauma or injury, no tracheal deviation, unlikely tension pneumothorax. No recent URI symptoms to suggest viral illness, pneumonia, costochondritis. No abdominal tenderness upon palpation, negative Sanchez sign, unlikely acute cholecystitis, choledocholithiasis, no fever or jaundice to suggest acute cholangitis, may possibly be biliary colic secondary to cholelithiasis. Denies associated acid reflux, no tenderness upon palpation over the epigastrium or left upper quadrant to suggest gastritis, no recent hematemesis history less likely to suggest PUD. Denies excessive alcohol consumption, history of diabetes, lower suspicion acute pancreatitis. Testing in the emergency department without evidence of ACS, CBC with a mild leukocytosis 12.5, normocytic anemia thrombocytosis. No electrolyte derangement. No BRONWYN. LFTs within normal range. High sensitive troponin below detectable limits. BNP within normal range. CXR is without consolidation or infiltrate to suggest pneumonia. Discussed strict return precautions, outpatient follow-up with PCP and given referral to Cardiology. Differential Diagnosis Differential Diagnoses: The differential diagnosis associated with the presentation includes (See narrative above) Admission/Observation Consideration of admission/observation: Escalation of care including admission/observation considered (See narrative above and course narrative for further detail) Lab Data [facility]DM Lab Attestation statement: I reviewed the patient's lab results. 09/21/24 19:30 09/21/24 19:30 Labs: Lab Results 09/21/24 Range/Units 19:30 WBC 12.5 H (4.8-10.8) X10*3/uL RBC 4.85 (4.60-5.80) X10*6/uL Hgb 13.8 L (14.0-18.0) g/dl Hct 41.3 L (42.0-52.0) % MCV 85.2 (80.0-98.0) fL MCH 28.5 (27.0-33.0) pg MCHC 33.4 (31.0-36.0) g/dl RDW 13.1 (11.0-16.0) % Plt Count 434 H (160-400) X10*3/uL MPV 9.3 L (9.4-12.4) fL Immature Gran % (Auto) 0.2 (0.0-0.4) % Neut % (Auto) 74.3 H (45-73) % Lymph % (Auto) 18.7 L (20-40) % [place] % (Auto) 4.9 (2-11) % Eos % (Auto) 1.1 (0-4) % Baso % (Auto) 0.8 (0-2) % Lymph # (Auto) 2.3 (1.2-4.9) X10*3/uL [place] # (Auto) 0.6 (0.1-1.2) X10*3/uL Eos # (Auto) 0.1 (0.0-0.4) X10*3/uL Baso # (Auto) 0.1 (0.0-0.2) X10*3/uL Abs Immat Gran (auto) 0.03 (0.00-0.03) X10*3/uL Absolute Neuts (auto) 9.3 H (2.0-8.3) x10*3/uL Absolute Nucleated RBC 0.000 (0.0-0.012) X10*3/uL Nucleated RBC % (auto) 0.0 (0.0-0.2) /100WBC PT 11.0 (10.9-12.4) SEC INR 0.9 (0.9-1.1) APTT 34.2 (26.0-36.8) SEC Sodium 141 (135-145) mmol/L Potassium 3.6 (3.3-5.1) mmol/L Chloride 108 (96-108) mmol/L Carbon Dioxide 26 (22-29) mmol/L Anion Gap 11 L (12-20) BUN 14 (9-16) mg/dL Creatinine 0.83 (0.5-1.4) mg/dL Estim Creat Clear Calc 130.8 Estimated GFR > 60 Random Glucose 138 H (60-115) mg/dL Calcium 9.2 (8.4-10.2) mg/dL Total Bilirubin 0.4 (0.0-1.0) mg/dL AST 21 (5-37) U/L ALT 34 (0-40) U/L Alkaline Phosphatase 53 (39-117) U/L Troponin I High Sens < 2.7 (<3.5-35.0) ng/L B-Natriuretic Peptide < 10 (<100) pg/mL Total Protein 6.9 (6.5-8.0) g/dL Albumin 4.6 (3.5-5.0) g/dL Independent Interpretation I performed an independent interpretation of an: EKG and Plain X-Ray (See narrative above) Interpretation: EKG reveals normal sinus rhythm with ventricular rate of 94, QTC 410, normal JONES, no ST elevation, no ST depression, no T-wave inversion Radiology Impression Discussion of test interpretation with radiology: I have reviewed the radiologist's reading. Radiologist Impression: XR/XR chest 1V IMPRESSION: Unremarkable examination. Prescription Management I considered prescription management with: Pain Medication (Acetaminophen/ibuprofen) Discharge Plan Discharge Clinical Impression: Atypical chest pain Patient Disposition: Home, Self-Care Instructions: Chest Pain (ED) Additional Instructions: You can take ibuprofen 200 mg, 3 tablets (600mg) every 6-8 hours as needed for pain, in addition to Tylenol 500 mg, 2 tablets (1,000mg) every 4-6 hours as needed for pain, but not to exceed 3 doses daily (3,000mg).? Follow-up with PCP/cardiology for further evaluation and treatment. Return with any new or worsening symptoms or concerns. As discussed, blood work today is quite reassuring. EKG has without findings to suggest a heart attack. Cardiac enzymes; troponin were normal. Chest x-ray does not show evidence of pneumonia or abnormality. Prescriptions: No Action cyclobenzaprine 10 mg tablet 10 mg PO TID PRN (Reason: muscle spasm) Qty: 10 0RF lidocaine 5 % adhesive patch,medicated 1 patch topical DAILY Qty: 15 0RF Rx Instructions: leave on most painful area for up to 12 hrs Referrals: [facility] [Provider Group] Physician,None [Primary Care Provider] - Interventions: ED Discharge Assessment Last Done: 09/21/24 22:58 Discharge Date/Time: 09/21/24 22:59 Print Language: Spanish
[2024-09-21 19:36] LABS: MANUAL DIFF FLAG NO
[2024-09-21 19:42] LABS: Basophils Absolute Auto 0.1 X10*3/uL (0.0-0.2); Basophils Percent Auto 0.8 % (0-2); Eosinophils Absolute Auto 0.1 X10*3/uL (0.0-0.4); Eosinophils Percent Auto 1.1 % (0-4); Hematocrit 41.3 % (42.0-52.0); Hemoglobin 13.8 g/dl (14.0-18.0); Imm Gran Abs Auto 0.03 X10*3/uL (0.00-0.03); Imm Gran Pct Auto 0.2 % (0.0-0.4); Lymphocytes Absolute Auto 2.3 X10*3/uL (1.2-4.9); Lymphocytes Percent Auto 18.7 % (20-40); Mean Corpuscular HGB Conc 33.4 g/dl (31.0-36.0); Mean Corpuscular Hemoglobin 28.5 pg (27.0-33.0); Mean Corpuscular Volume 85.2 fL (80.0-98.0); Mean Platelet Volume 9.3 fL (9.4-12.4); Monocytes Absolute Auto 0.6 X10*3/uL (0.1-1.2); Monocytes Percent Auto 4.9 % (2-11); Neutrophils Absolute Auto 9.3 x10*3/uL (2.0-8.3); Neutrophils Percent Auto 74.3 % (45-73); Platelet Count 434 X10*3/uL (160-400); Red Blood Count 4.85 X10*6/uL (4.60-5.80); Red Cell Distribution Width 13.1 % (11.0-16.0); White Blood Count 12.5 X10*3/uL (4.8-10.8)
[2024-09-21 19:50] LABS: Alanine Aminotransferase 34 U/L (0-40); Albumin Level 4.6 g/dL (3.5-5.0); Alkaline Phosphatase 53 U/L (39-117); Anion Gap 11 (12-20); Aspartate Amino Transferase 21 U/L (5-37); Bilirubin Total 0.4 mg/dL (0.0-1.0); Blood Urea Nitrogen 14 mg/dL (9-16); Calcium 9.2 mg/dL (8.4-10.2); Carbon Dioxide 26 mmol/L (22-29); Chloride 108 mmol/L (96-108); Creatinine Clr Calc Pharmacy 130.8; Estimated Glomerular Filt Rate > 60; Glucose Random 138 mg/dL (60-115); Potassium 3.6 mmol/L (3.3-5.1); Sodium 141 mmol/L (135-145); Total Protein 6.9 g/dL (6.5-8.0)
[2024-09-21 19:51] LABS: INTERNATIONAL NORM RATIO 0.9 (0.9-1.1)
[2024-09-21 19:54] LABS: Partial Thromboplastin Time 34.2 SEC (26.0-36.8)
[2024-09-21 19:58] LABS: Troponin-I High Sensitivity < 2.7 ng/L (<3.5-35.0)
[2024-09-21 20:04] LABS: B Type Natriuretic Peptide < 10 pg/mL (<100)
[2024-09-21 21:40] VITALS: BP 136/88; PULSE 64; RESP 18; TEMP 36.8; O2SAT 97
--- NOTE | 2024-09-21 21:41 | MHC.EDTECH ---
Patient came in from waiting room,changed into hospital attire,vitals taken,pt placed on the classroom monitor,call high in reach
[2024-09-21 22:58] VITALS: BP 136/88; PULSE 64; RESP 18; TEMP 36.8; O2SAT 97
== END 2024-09-21 22:59 | disposition home or self-care (01) ==
PROVIDERS: Physician Assistant; Emergency Provider Emergency Medicine
DX: R07.89 Other chest pain (principal); R06.02 Shortness of breath; Z79.899 Other long term (current) drug therapy
CPT/HCPCS: 36415; 71045; 80053; 83880; 84484; 85025; 85610; 85730; 93005; 99283; 99284

== ENCOUNTER → 2024-09-21 18:54 | Outpatient (BNV) | payer OTHER, SELFPAY | PROVIDERS: Emergency Provider Emergency Medicine; Visit Provider Internal Medicine Cardiovascular Disease | DX: R07.9 Chest pain, unspecified (principal) | CPT/HCPCS: 93010 ==